=== PATIENT | female | born 1995 | race Two or more races ===

== ENCOUNTER 2021-05-13 01:14 | Emergency (ER) | payer OTHER ==
[2021-05-13 01:44] LABS: BILIRUBIN,URINE NEGATIVE (NEGATIVE); GLUCOSE, URINE (UA) NEGATIVE (NEGATIVE); KETONES,URINE (UA) 15 mg/dL (NEGATIVE); LEUKOCYTE ESTERASE, URINE NEGATIVE (NEGATIVE); NITRITE,URINE NEGATIVE (NEGATIVE); OCCULT BLOOD,URINE TRACE-LYSE (NEGATIVE); PH,URINE 7.5 PH (5.0-7.5); PROTEIN,URINE NEGATIVE (NEGATIVE); UROBILINOGEN,URINE 0.2 (NORMAL) E.U./dL (NORMAL)
[2021-05-13 01:46] LABS: CLARITY,URINE CLEAR (CLEAR)
[2021-05-13 03:59] LABS: BASOPHILS % (AUTO) 0.2 %; EOSINOPHILS # (AUTO) 0.1 10^3/uL (0.0-0.7); EOSINOPHILS % (AUTO) 0.7 %; HCT - HEMATOCRIT 42.3 % (37.0-47.0); HGB - HEMOGLOBIN 14.6 g/dL (12.0-16.0); LYMPHOCYTES # (AUTO) 1.8 10^3/uL (1.5-3.5); LYMPHOCYTES % (AUTO) 17.7 %; MEAN CORPUSCULAR HEMOGLOBIN 29.3 pg (27.0-31.0); MEAN CORPUSCULAR HGB CONC 34.5 g/dL (32.0-36.0); MEAN CORPUSCULAR VOLUME 84.9 fL (81.0-99.0); MONOCYTES # (AUTO) 0.5 10^3/uL (0.0-1.0); MONOCYTES % (AUTO) 4.8 %; NEUTROPHILS # (AUTO) 7.9 10^3/uL (1.5-6.6); NEUTROPHILS % (AUTO) 76.4 %; PLT - PLATELET COUNT 288 10^3/uL (130-450); RED BLOOD COUNT 4.98 10^6/uL (4.20-5.40); RED CELL DISTRIBUTION WIDTH 12.5 % (12.0-15.0); WHITE BLOOD COUNT 10.3 x10^3/uL (4.8-10.8)
[2021-05-13 04:13] LABS: ALBUMIN 4.3 g/dL (3.2-5.5); ALBUMIN/GLOBULIN RATIO 1.3 (1.0-2.2); BILIRUBIN,TOTAL 0.5 mg/dL (0.2-1.0); CALCIUM 9.6 mg/dL (8.5-10.3); CREATININE 0.7 mg/dL (0.4-1.0); POTASSIUM 2.6 mmol/L (3.5-5.0); TOTAL PROTEIN 7.7 g/dL (6.7-8.2)
[2021-05-13] MEDS ORDERED: HYDROcod/ACETAM 5/325 MG TABLET PO STA (06:37)
[2021-05-13] MEDS ORDERED: ONDANSETRON ODT 4 MG TABLET TL STA (06:37)
[2021-05-13] MEDS ORDERED: POTASSIUM CHLORIDE 20 MEQ TABLET PO STA (06:38)
[2021-05-13 06:39] VITALS: BP 126/91
--- NOTE | 2021-05-13 06:47 | ED Physician Documentation ---
PD HPI ABD PAIN - Stated complaint Stated Complaint: ABD PX - Chief complaint Chief Complaint: Abd Pain - History obtained from History obtained from: Patient - History of Present Illness Timing - onset: Enter time (19:00), Today Timing - details: Abrupt onset, Intermittant, Waxing and waning Pain level max: 4 Pain level now: 0 Quality: Pain Location: RUQ, Epigastric Improved by: Other (no ameliorating factors) Worsened by: Palpation Associated symptoms: Nausea. No: Fever, Vomiting Similar symptoms before: Has not had sx before - Additional information Additional information: Liberian-speaking only; HPI/ROS obtained via [employer] for translation. Patient c/o epigastric pain since 7 PM, episodic, with nausea but no vomiting. Denies h/o similar symptoms. She also notes that she took a home test yesterday with (+) result. LMP 03/22 Review of Systems Constitutional: denies: Fever Cardiac: reports: Reviewed and negative Respiratory: reports: Reviewed and negative GI: reports: Abdominal Pain, Nausea. 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 : None HEENT: None Psych: None Musculoskeletal: None Derm: None - Past Surgical History Past Surgical History: Yes /HAIRSPRING TRUER: section - Present Medications Home Medications: Ambulatory Orders Medication Instructions Recorded Confirmed HYDROcod/ACETAM 5/325 [[place] 5/325] 1 tablet PO Q6H PRN #10 tablet 05/13/21 Ondansetron Odt [Zofran] 4 mg TL Q6H PRN #10 tablet 05/13/21 - Allergies Allergies/Adverse Reactions: Allergies Allergy/AdvReac Type Severity Reaction Status Date / Time No Known Drug Allergies Allergy Verified 05/13/21 01:37 - Social History Does the pt smoke?: No Smoking Status: Never smoker Does the pt drink ETOH?: No Does the pt have substance abuse?: No - Immunizations Immunizations are current?: Yes - POLST Patient has POLST: No PD ED PE NORMAL - Vitals Vital signs reviewed: Yes - General General: Alert and oriented X 3, No acute distress, Well developed/nourished - Cardiac Cardiac: RRR, No murmur - Respiratory Respiratory: No respiratory distress, Clear bilaterally - Abdomen Abdomen: Normal bowel sounds, Soft, Non tender, Non distended - Back Back: No CVA TTP - Derm Derm: Normal color, Warm and dry - Extremities Extremities: No edema Results - Vitals Vitals: Oxygen O2 Source Room air - Labs Labs: Laboratory Tests 05/13/21 05/13/21 05/13/21 01:30 03:40 03:40 WBC 10.3 RBC 4.98 Hgb 14.6 Hct 42.3 MCV 84.9 MCH 29.3 MCHC 34.5 RDW 12.5 Plt Count 288 MPV 10.0 Neut # (Auto) 7.9 H Lymph # (Auto) 1.8 [place] # (Auto) 0.5 Eos # (Auto) 0.1 Baso # (Auto) 0.0 Absolute Nucleated RBC 0.00 Nucleated RBC % 0.0 Sodium 136 Potassium 2.6 L Chloride 100 L Carbon Dioxide 24 Anion Gap 12.0 BUN 11 Creatinine 0.7 Estimated GFR (MDRD) 100 Glucose 112 H Calcium 9.6 Total Bilirubin 0.5 AST 18 ALT 17 Alkaline Phosphatase 67 Total Protein 7.7 Albumin 4.3 Globulin 3.4 Albumin/Globulin Ratio 1.3 Lipase 36 HCG, Quant Urine Color YELLOW Urine Clarity CLEAR Urine pH 7.5 Ur Specific [place] 1.020 Urine Protein NEGATIVE Urine Glucose (UA) NEGATIVE Urine Ketones 15 H Urine Occult Blood TRACE-LYSE Urine Nitrite NEGATIVE Urine Bilirubin NEGATIVE Urine Urobilinogen 0.2 (NORMAL) Ur Leukocyte Esterase NEGATIVE Ur Microscopic Review NOT INDICATED Urine Culture Comments NOT INDICATED 05/13/21 03:40 WBC RBC Hgb Hct MCV MCH MCHC RDW Plt Count MPV Neut # (Auto) Lymph # (Auto) [place] # (Auto) Eos # (Auto) Baso # (Auto) Absolute Nucleated RBC Nucleated RBC % Sodium Potassium Chloride Carbon Dioxide Anion Gap BUN Creatinine Estimated GFR (MDRD) Glucose Calcium Total Bilirubin AST ALT Alkaline Phosphatase Total Protein Albumin Globulin Albumin/Globulin Ratio Lipase HCG, Quant 8761.00 Urine Color Urine Clarity Urine pH Ur Specific [place] Urine Protein Urine Glucose (UA) Urine Ketones Urine Occult Blood Urine Nitrite Urine Bilirubin Urine Urobilinogen Ur Leukocyte Esterase Ur Microscopic Review Urine Culture Comments - Rads (name of study) RUQ US Radiology: Prelim report reviewed, See rad report first trimester US Radiology: Prelim report reviewed, See rad report PD MEDICAL DECISION MAKING - ED course Complexity details: reviewed results, re-evaluated patient, considered differential, d/w patient ED course: first trimester US shows early , but too early to see heart movement so differential includes blighted ovum; will need close follow up for reevaluation within next few days. RUQ US shows gallstones without overt evidence of cholecystitis. She is having pain on reevaluation and thus given vicodin with rx for short course of vicodin transmitted to her pharmacy of choice. Potassium low at 2.6. Given po potassium, but advised to follow up within few days with primary care provider for recheck. All of these results reviewed with patient (again, using [employer]yr[employer] for translation), as well as diagnoses, prognoses, and follow up recommendations (surgery for the gallbladder issues, learning developer for reevaluation of findings on tonights US, and general practitioner for recheck of potassium). I am prescribing a short course of short-acting opioid pain medication for this patient. 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 I have discussed that the opioids are for short term therapy only, and will not be refilled from the ED Departure - Departure Disposition: 01 Home, Self Care Clinical Impression: Biliary colic, Early stage of , Hypokalemia Condition: Good Instructions: ED Gallstone W Biliary Colic, ED Potassium Deficiency, ED Abdominal Pain Preg Gallstones Follow-Up: Sravanthi Tracy MD [Provider Admit Priv/Credential] - Debbie Jason MD [Provider Admit Priv/Credential] - Prescriptions: HYDROcod/ACETAM 5/325 [[place] 5/325] 1 tablet PO Q6H PRN #10 tablet PRN Reason: Pain Ondansetron Odt [Zofran] 4 mg TL Q6H PRN #10 tablet PRN Reason: Nausea / Vomiting Print Language: Liberian Comments: The ultrasound shows signs of early . It is important to follow up with learning developer within the next week for reevaluation so that it can be determined if the is progressing normally. The ultrasound also shows you have gallstones, and this is what is causing the upper abdominal pain. A pain medication has been prescribed for this; the medication is hydrocodone with acetaminophen. This is a narcotic pain medication, so it is to be used sparingly in . If your symptoms are not controlled with this medication, consider returning to the emergency department. A prescription for the hydrocodone /acetaminophen as well as an anti-nausea medication (ondansetron) has been sent to [facility] pharmacy in [place]. You should follow up with a general surgeon to discuss options for treatment of the gallstones. You should also follow up with your primary care provider for recheck of your potassium level. I am prescribing a short course of narcotic pain medication for you. These are potentially dangerous and addictive medications that should be used carefully. These medications may constipate you. Take an pabv-nvo-frcuwvt stool softener (docusate) twice daily with plenty of water while taking these medications. If you go 24 hours without a bowel movement, take fvwu-yxx-mksvpuv miralax, per package instructions. Do not drink or drive while taking these medications. If you received narcotic or sedating medications while in the emergency department, do not drive for 24 hours. Store this medication in a safe, secure place and out of reach of children. It is a violation of federal law to give or sell this medication to another person or to use in a manner other than prescribed. The ED will not refill narcotic prescriptions, including prescriptions lost or stolen. To dispose of unwanted medications: 1. [facility] at [address] in [place] has a medication drop box. They accept prescription medications (in pill form) Tuesday through Tuesday 9:00 a.m. to 5:00 p.m. 2. The [facility] accepts prescription medications (in pill form only) for disposal year round. Call for more information. 3. Contact the [facility] for the next [facility] sponsored prescription drug collection event. , [phone], or [phone]; Discharge Date/Time: 05/13/21 06:50
--- NOTE | 2021-05-13 10:09 | Ultrasound Report ---
PROCEDURE: OB First Trimester INDICATIONS: abdominal pain, first trimester OUTSIDE/PRIOR DATING DATA: Last menstrual period (LMP): 03/22/2021. LMP-based estimated date of delivery (TATYANA): 12/27/2021. First dating scan (date and location): 05/13/2021. Estimated date of delivery (TATYANA) from first dating scan: Not applicable. TECHNIQUE: Real-time scanning was performed of the fetus and maternal pelvic organs, with image documentation. COMPARISON: None FINDINGS: Embryo: Intrauterine gestational sac is identified measuring 6 mm corresponding to a gestational age of 5 weeks 2 days. No yolk sac or pole is identified. Heart rate: Not present Measurement variability in dating: +/- 4 weeks by LMP, +/- 7 days by mean sac diameter (use before 6 weeks gestation if crown-rump length not able to be measured), +/- 5 days by crown-rump length (6-12 weeks gestation). Maternal organs: Ovaries demonstrate cysts within the right ovary the largest measuring 2 cm.. IMPRESSION: Intrauterine gestational sac without visualized pole or yolk sac. Recommend short interval imag ing follow-up with correlation to beta hCG levels to determine possible progression versus blighted ovum. Reviewed by: Nara Jaffe MD on 05/13/2021 10:07 AM PST Approved by: Nara Jaffe MD on 05/13/2021 10:07 AM PST Station ID: [id number]
--- NOTE | 2021-05-13 10:11 | Ultrasound Report ---
PROCEDURE: Abdomen Limited INDICATIONS: RUQ pain TECHNIQUE: Real-time scanning was performed of the abdominal and retroperitoneal organs, with image documentatio n. COMPARISON: OB ultrasound 05/13/2021 FINDINGS: Liver: Liver is normal in size with steatosis. Gallbladder: Areas of sludge versus small stones are identified within the gallbladder. Wall thicknes s is at the upper limits of normal measuring 2.8 mm. Biliary ducts: Intrahepatic bile ducts are non-dilated. Extrahepatic bile duct caliber measures 4.6 mm. Normal is 6-7 mm or less in diameter, or 10 mm or less post-cholecystectomy. Pancreas: Visualized portions of the pancreas are sonographically normal. Kidneys: Right kidney measures 10.4 cm long. No hydronephrosis or nephrolithiasis. No solid masses . IVC: Intrahepatic inferior vena cava is patent. Miscellaneous: No free abdominal fluid. IMPRESSION: Cholelithiasis without imaging evidence of cholecystitis. The above findings are concordant with preliminary report. Reviewed by: Nara Jaffe MD on 05/13/2021 10:10 AM [facility] Approved by: Nara Jaffe MD on 05/13/2021 10:10 AM [facility] Station ID: [id number]
== END 2021-05-13 06:50 | disposition home or self-care (01) ==
LOC: ED 01:14
DX: O26.619 Liver and biliary tract disorders in pregnancy, unspecified trimester (principal); Z3A.01 Less than 8 weeks gestation of pregnancy; O99.283 Endocrine, nutritional and metabolic diseases complicating pregnancy, third trimester; E87.6 Hypokalemia
CPT/HCPCS: 36415; 76705; 76801; 76817; 80053; 81003; 83690; 84702; 85025; 99283; 99284; A9270; Q0162; 81001; 87086

== ENCOUNTER 2021-05-17 19:33 | Emergency (ER) | payer OTHER ==
--- NOTE | 2021-05-17 19:39 | ED Physician Documentation ---
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 History of 2 C-sections, she is not sure why she had the first 1, "a emergency in [place]." She has been having nightly right upper quadrant pain that is severe and worse with inspiration. Se en here on May 13, obstetric ultrasound showed gestational sac without pole or yolk sac. Abdominal ultrasound demonstrated cholelithiasis. No evidence of cholecystitis. Blood work demonstrated normal white blood cell count and liver enzymes. Beta hCG was 8761. Potassium was 2.6 and given oral potassium. She was given hydrocodone which has not helped the pain that much. She denies fevers but has had sweats at night. Pain not too bad right now but seems worse in the evening. Of note she declined pain medication at the time of service as she is driving. She denies vaginal bleeding or fluid loss, no pelvic pain. 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 - Present Medications Home Medications: Ambulatory Orders Medication Instructions Recorded Confirmed HYDROcod/ACETAM 5/325 [[place] 5/325] 1 tablet PO Q6H PRN #10 tablet 05/13/21 05/17/21 Ondansetron Odt [Zofran] 4 mg TL Q6H PRN #10 tablet 05/13/21 05/17/21 Oxycodone HCl/Acetaminophen 1 - 2 each PO Q6H PRN #30 tablet 05/17/21 [Percocet 5-325 mg Tablet] - Allergies Allergies/Adverse Reactions: Allergies Allergy/AdvReac Type Severity Reaction Status Date / Time No Known Drug Allergies Allergy Verified 05/17/21 19:46 - Social History Does the pt smoke?: No Smoking Status: Never smoker Does the pt drink ETOH?: No Does the pt have substance abuse?: No - Immunizations Immunizations are current?: Yes - POLST Patient has POLST: No PD ED PE NORMAL - Vitals Vital signs reviewed: Yes - General General: Alert and oriented X 3, No acute distress - HEENT HEENT: PERRL, EOMI - Neck Neck: Supple, no meningeal sign, No bony TTP - Cardiac Cardiac: RRR, No murmur - Respiratory Respiratory: No respiratory distress, Clear bilaterally - Abdomen Abdomen: Normal bowel sounds, Soft, Other (Mild tenderness in the right upper quadrant, positive Noble sign.) - Back Back: No CVA TTP, No spinal TTP - Derm Derm: Normal color, Warm and dry - Extremities Extremities: No edema, No calf tenderness / cord - Neuro Neuro: Alert and oriented X 3, Normal speech Results - Vitals Vitals: Vital Signs - 24 hr 05/17/21 05/17/21 19:35 22:32 Temperature 36 C L 36.5 C Heart Rate 82 68 Respiratory 18 20 Rate Blood Pressure 148/86 H 136/96 H O2 Saturation 98 97 Oxygen O2 Source Room air - Labs Labs: Laboratory Tests 05/17/21 05/17/21 05/17/21 19:55 19:55 19:55 WBC 9.5 RBC 4.96 Hgb 14.8 Hct 42.0 MCV 84.7 MCH 29.8 MCHC 35.2 RDW 12.2 Plt Count 264 MPV 10.1 Neut # (Auto) 6.4 Lymph # (Auto) 2.3 [place] # (Auto) 0.6 Eos # (Auto) 0.1 Baso # (Auto) 0.0 Absolute Nucleated RBC 0.00 Nucleated RBC % 0.0 Sodium 136 Potassium 2.7 L Chloride 99 L Carbon Dioxide 24 Anion Gap 13.0 BUN 11 Creatinine 0.8 Estimated GFR (MDRD) 85 L Glucose 103 H Calcium 9.3 Total Bilirubin 0.9 AST 26 ALT 27 Alkaline Phosphatase 69 Total Protein 8.0 Albumin 4.6 Globulin 3.4 Albumin/Globulin Ratio 1.4 Lipase 35 HCG, Quant Blood Type B NEGATIVE 05/17/21 19:55 WBC RBC Hgb Hct MCV MCH MCHC RDW Plt Count MPV Neut # (Auto) Lymph # (Auto) [place] # (Auto) Eos # (Auto) Baso # (Auto) Absolute Nucleated RBC Nucleated RBC % Sodium Potassium Chloride Carbon Dioxide Anion Gap BUN Creatinine Estimated GFR (MDRD) Glucose Calcium Total Bilirubin AST ALT Alkaline Phosphatase Total Protein Albumin Globulin Albumin/Globulin Ratio Lipase HCG, Quant 75751.00 Blood Type PD MEDICAL DECISION MAKING - ED course Complexity details: reviewed results (Beta-hCG seems to have risen in a manner consistent with potentially a normal more than doubling in 4 days. Went from 8761 about 2-1/2 days ago to 61438 today.) ED course: This is a G3, P2 in early who has biliary colic and pain now worse than it was the other night but still no evidence of cholecystitis by labs or ultrasound. does seem to be progressing per the mental health clinician with more evidence of an intrauterine when the other night it was not too reassuring on ultrasound. Departure - Departure Disposition: 01 Home, Self Care Clinical Impression: Biliary colic, Early stage of Condition: Good Record reviewed to determine appropriate education?: Yes Instructions: ED Gallstone W Biliary Colic Prescriptions: Oxycodone HCl/Acetaminophen [Percocet 5-325 mg Tablet] 1 - 2 each PO Q6H PRN #30 tablet PRN Reason: pain Print Language: Latvian Comments: Nancie se mencion, parece que neely embarazo est progresando guzman, mirando el ultrasonido esta noche, neely fecha de parto debera ser el 3 de noviembre. Neely vescula biliar no se ve peor de lo que estaba. Muchas piedras, sandi ninguna evidencia de infeccin o bloqueo. Estoy recetando un analgsico ms jak y env i la receta a [facility] en [place]. Debe hacer un seguimiento con el especialista mientras planifica. Regresar si es peor. Puede ser beneficioso seguir marvin dieta baja en grasas, especialmente por la noche. La grasa hace que la vescula biliar se contraiga, lo que causar ms dolor. Nancie se discuti, trate de minimizar el uso de narcticos vignesh el embarazo, cuando el dolor no es zheng jak, debe tratar de seguir con Tylenol de venta aryan para el dolor. Le estoy recetando un ciclo corto de analgsicos narcticos. Estos son medicamentos potencialmente peligrosos y adictivos que deben usarse con cuidado. Estos medicamentos pueden causarle estreimiento. [place] un ablandador de heces de venta aryan (docusato) dos veces al da con abundante agua mientras earnestine estos medicamentos. Si pasa 24 horas sin defecar, tome miralax de venta aryan, segn las instrucciones del paquete. No vikash ni conduzca mientras earnestine estos medicamentos. Si recibi medicamentos narcticos o sedantes mientras estaba en el departamento de emergencias, no conduzca vignesh 24 horas. Guarde radha medicamento en un lugar seguro y fuera del alcance de los nios. Es marvin violacin de la [facility] le[facility] o telecom network manager radha medicamento a otra persona o usarlo de marvin manera diferente a la recetada. El ED no volver a surtir recetas de narcticos, incluidas las recetas perdidas o robadas. Para desechar medicamentos no deseados: 1. Precinto [place] del Departamento del [facility] del [facility] en [facility]. en [place] tiene un buzn de medicamentos. Aceptan medicamentos recetados (en forma de pastillas) de lunes a viernes de 9:00 a. m. a 5:00 p. m. 2. El Departamento de [place] de la [facility] acepta medicamentos recetados (solo en forma de pldora) para neely eliminacin vignesh todo el ao. Caleb hunter para ms informacin. 3. Comunquese con el alguacil del [facility] para conocer el prximo evento de recoleccin de medicamentos recetados patrocinado por la [place]. , [id number], o [phone]; Tenga en cuenta que muchos analgsicos narcticos tambin contienen Tylenol/acetaminofn. Asegrese de que neely dosis total de paracetamol de todas las asl no exceda los 3 g (3000 mg) por da. Discharge Date/Time: 05/17/21 22:32
[2021-05-17 20:08] LABS: BASOPHILS % (AUTO) 0.2 %; EOSINOPHILS # (AUTO) 0.1 10^3/uL (0.0-0.7); HGB - HEMOGLOBIN 14.8 g/dL (12.0-16.0); LYMPHOCYTES # (AUTO) 2.3 10^3/uL (1.5-3.5); LYMPHOCYTES % (AUTO) 24.3 %; MEAN CORPUSCULAR HEMOGLOBIN 29.8 pg (27.0-31.0); MEAN CORPUSCULAR HGB CONC 35.2 g/dL (32.0-36.0); MEAN CORPUSCULAR VOLUME 84.7 fL (81.0-99.0); MEAN PLATELET VOLUME 10.1 fL (7.9-10.8); MONOCYTES # (AUTO) 0.6 10^3/uL (0.0-1.0); MONOCYTES % (AUTO) 6.4 %; NEUTROPHILS # (AUTO) 6.4 10^3/uL (1.5-6.6); NEUTROPHILS % (AUTO) 67.8 %; PLT - PLATELET COUNT 264 10^3/uL (130-450); RED BLOOD COUNT 4.96 10^6/uL (4.20-5.40); RED CELL DISTRIBUTION WIDTH 12.2 % (12.0-15.0); WHITE BLOOD COUNT 9.5 x10^3/uL (4.8-10.8)
[2021-05-17 20:22] LABS: ALBUMIN 4.6 g/dL (3.2-5.5); ALBUMIN/GLOBULIN RATIO 1.4 (1.0-2.2); BILIRUBIN,TOTAL 0.9 mg/dL (0.2-1.0); CALCIUM 9.3 mg/dL (8.5-10.3); CREATININE 0.8 mg/dL (0.4-1.0); POTASSIUM 2.7 mmol/L (3.5-5.0)
[2021-05-17] MEDS ORDERED: POTASSIUM CHLORIDE 20 MEQ TABLET PO STA (20:40)
[2021-05-17] MEDS ORDERED: oxyCODONE/ACET 5/325 Prepack 4 PO STA (22:01)
[2021-05-17 22:35] VITALS: BP 136/96
--- NOTE | 2021-05-17 22:53 | Ultrasound Report ---
PROCEDURE: Abdomen Limited INDICATIONS: Reeval RUQ pain TECHNIQUE: Real-time focused scanning was performed of the abdomen, with image documentation. COMPARISON: Abdominal ultrasound 05/13/2021 FINDINGS: The liver is normal in size at 16.1 cm and diffusely increased in echogenicity. Gallstones and sludge are seen within the gallbladder. No gallbladder wall thickening or pericholecys tic fluid. Sonographic Noble sign is negative. Intrahepatic and intrahepatic biliary ducts are within normal limits in size. The common bile duct me asures 2.5 mm in maximum diameter. Visualized pancreas is within normal limits. Right kidney is within normal limits in size. No hydronephrosis or nephrolithiasis. No free right upper quadrant fluid. IMPRESSION: 1.Cholelithiasis and gallbladder sludge without signs of acute cholecystitis. 2.Diffusely increased hepatic echogenicity is nonspecific, but most commonly encountered in the setti ng of hepatic steatosis. However, other causes of hepatocellular disease are not excluded. Recommend clinical correlation. Reviewed by: Merlin Juarez MD on 05/17/2021 10:51 PM [facility] Approved by: Merlin Juarez MD on 05/17/2021 10:51 PM PST Station ID: [id number]
--- NOTE | 2021-05-17 23:31 | Ultrasound Report ---
PROCEDURE: OB First Trimester INDICATIONS: Recent nondiagnostic ultrasound OUTSIDE/PRIOR DATING DATA: Last menstrual period (LMP): 03/22/2021. LMP-based estimated date of delivery (TATYANA): 12/27/2021. First dating scan (date and location): 05/17/2021. Estimated date of delivery (TATYANA) from first dating scan: 01/11/2022. TECHNIQUE: Real-time scanning was performed of the fetus and maternal pelvic organs, with image documentation. COMPARISON: Ultrasound 05/13/2021 FINDINGS: Embryo: Intrauterine is seen with gestational sac, yolk sac, and pole. [place]-rump le ngth measures 0.24 cm, giving an estimated gestational age of 5 weeks 6 days. cardiac activity is seen. A small perigestational sac hemorrhage is seen measuring 0.9 x 0.6 x 0.3 cm. Heart rate: 60 bpm Measurement variability in dating: +/- 4 weeks by LMP, +/- 7 days by mean sac diameter (use before 6 weeks gestation if crown-rump length not able to be measured), +/- 5 days by crown-rump length (6-12 weeks gestation). Maternal organs: Ovaries are within normal limits. A right corpus luteum cyst measures up to 2.6 cm. Small amount of free fluid is seen in the pelvic cul-de-sac. IMPRESSION: 1.Single live intrauterine with estimated gestational age of 5 weeks 6 days, giving an ultr asound TATYANA of 01/11/2022. 2.Small perigestational sac hemorrhage is seen measuring up to 0.9 cm. Reviewed by: Merlin Juarez MD on 05/17/2021 11:29 PM PST Approved by: Merlin Juarez MD on 05/17/2021 11:29 PM PST Station ID: [id number]
--- NOTE | 2021-05-17 23:31 | Ultrasound Report ---
PROCEDURE: OB Transvaginal INDICATIONS: Recent nondiagnostic ultrasound OUTSIDE/PRIOR DATING DATA: Last menstrual period (LMP): 03/22/2021. LMP-based estimated date of delivery (TATYANA): 12/27/2021. First dating scan (date and location): 05/17/2021. Estimated date of delivery (TATYANA) from first dating scan: 01/11/2022. TECHNIQUE: Real-time scanning was performed of the fetus and maternal pelvic organs, with image documentation. COMPARISON: Ultrasound 05/13/2021 FINDINGS: Embryo: Intrauterine is seen with gestational sac, yolk sac, and pole. [place]-rump le ngth measures 0.24 cm, giving an estimated gestational age of 5 weeks 6 days. cardiac activity is seen. A small perigestational sac hemorrhage is seen measuring 0.9 x 0.6 x 0.3 cm. Heart rate: 60 bpm Measurement variability in dating: +/- 4 weeks by LMP, +/- 7 days by mean sac diameter (use before 6 weeks gestation if crown-rump length not able to be measured), +/- 5 days by crown-rump length (6-12 weeks gestation). Maternal organs: Ovaries are within normal limits. A right corpus luteum cyst measures up to 2.6 cm. Small amount of free fluid is seen in the pelvic cul-de-sac. IMPRESSION: 1.Single live intrauterine with estimated gestational age of 5 weeks 6 days, giving an ultr asound TATYANA of 01/11/2022. 2.Small perigestational sac hemorrhage is seen measuring up to 0.9 cm. Reviewed by: Merlin Juarez MD on 05/17/2021 11:30 PM PST Approved by: Merlin Juarez MD on 05/17/2021 11:30 PM PST Station ID: [id number]
== END 2021-05-17 22:32 | disposition home or self-care (01) ==
LOC: ED 19:33
DX: O99.891 Other specified diseases and conditions complicating pregnancy (principal); K80.50 Calculus of bile duct without cholangitis or cholecystitis without obstruction; Z3A.01 Less than 8 weeks gestation of pregnancy
CPT/HCPCS: 36415; 76705; 76801; 76817; 80053; 83690; 84702; 85025; 86900; 86901; 99282; 99284; A9270

== ENCOUNTER 2021-05-21 08:35 | Inpatient (IN) | payer OTHER ==
[2021-05-21] MEDS ORDERED: HYDROmorphone 1 MG/ML CARPUJECT IVP STA ×3 (08:45→14:21)
[2021-05-21] MEDS ORDERED: KETOROLAC 30 MG/ML VIAL IVP STA (08:45)
[2021-05-21] MEDS ORDERED: SODIUM CHLORIDE 0.9% 1,000 ML IV STA ×2 (08:45→11:17)
--- NOTE | 2021-05-21 09:07 | ED Physician Documentation ---
History of Present Illness - Stated complaint Stated Complaint: ABD PX - History obtained from History obtained from: Patient - Additonal information Additional information: The patient comes to the emergency department chief complaint upper quadrant abdominal pain and nausea for the last week. She states that when the pain and nausea started, she was seen and had an ultrasound done, which showed gallstones. The patient states that she has pretty much been in pain since her original ultrasound which was done on May 13. She states that she can hold food and water down only occasionally but usually everything comes up. The patient's last menstrual period was March 22 and she had an OB ultrasound on May 13, which showed her to be about 4 weeks along. She states she was told at that time that she could not have her gallbladder removed while she was . She states that she has been so miserable she is considering getting an because she just wants her gallbladder out. She reports a fever of 99.9 at home. She states her pain is a 10 out of 10 after explanation of the pain scale. She states that taking deep breath causes it to hurt more and she feels like she cannot get a full breath and because of the pain. She also reports pain in her back around the same level as the pain in the abdomen. No radiation. She does not have any further descriptors for the pain other than it just hurts. The patient has been using [place] and Zofran at home with no relief.No vaginal bleeding or other issues with the . No other complaints at this time. Review of Systems Ten Systems: 10 systems reviewed and negative Constitutional: reports: Reviewed and negative Eyes: reports: Reviewed and negative Ears: reports: Reviewed and negative Nose: reports: Reviewed and negative Throat: reports: Reviewed and negative Cardiac: reports: Reviewed and negative Respiratory: reports: Reviewed and negative GI: reports: Abdominal Pain, Nausea, Vomiting : reports: Reviewed and negative Skin: reports: Reviewed and negative Musculoskeletal: reports: Reviewed and negative Neurologic: reports: Reviewed and negative Psychiatric: reports: Reviewed and negative Endocrine: reports: Reviewed and negative Immunocompromised: reports: Reviewed and negative PD PAST MEDICAL HISTORY - Past Medical History Cardiovascular: None Respiratory: None Neuro: None Endocrine/Autoimmune: None GI: None HOSPICE TEAM LEAD: None : None HEENT: None Psych: None Musculoskeletal: None Derm: None - Past Surgical History Past Surgical History: Yes /HOSPICE TEAM LEAD: section - Present Medications Home Medications: Ambulatory Orders Medication Instructions Recorded Confirmed Ondansetron Odt [Zofran] 4 mg TL Q6H PRN #10 tablet 05/13/21 05/21/21 Oxycodone HCl/Acetaminophen 1 - 2 each PO Q6H PRN #30 tablet 05/17/21 05/21/21 [Percocet 5-325 mg Tablet] - Allergies Allergies/Adverse Reactions: Allergies Allergy/AdvReac Type Severity Reaction Status Date / Time No Known Drug Allergies Allergy Verified 05/21/21 08:45 - Social History Does the pt smoke?: No Smoking Status: Never smoker Does the pt drink ETOH?: No Does the pt have substance abuse?: No - Immunizations Immunizations are current?: Yes - POLST Patient has POLST: No PD ED PE NORMAL - Vitals Vital signs reviewed: Yes - General General: Alert and oriented X 3, No acute distress, Well developed/nourished - HEENT HEENT: Atraumatic, PERRL, EOMI, Moist mucous membranes - Neck Neck: Supple, no meningeal sign - Cardiac Cardiac: RRR, No murmur, Strong equal pulses - Respiratory Respiratory: No respiratory distress, Clear bilaterally - Abdomen Abdomen: Soft, Non distended, Other (Moderate tenderness without rebound or guarding right upper quadrant.) - Back Back: No CVA TTP - Derm Derm: Normal color, Warm and dry, No rash - Extremities Extremities: No deformity, No edema - Neuro Neuro: Alert and oriented X 3 - Psych Psych: Normal mood, Normal affect Results - Vitals Vitals: Vital Signs - 24 hr 05/21/21 05/21/21 05/21/21 08:40 10:10 13:08 Temperature 36.8 C Heart Rate 80 72 66 Respiratory 19 18 17 Rate Blood Pressure 157/102 H 142/92 H 147/95 H O2 Saturation 100 99 99 05/21/21 14:13 Temperature Heart Rate 71 Respiratory 18 Rate Blood Pressure 145/89 H O2 Saturation 100 Oxygen O2 Source Room air - Labs Labs: Laboratory Tests 05/21/21 05/21/21 05/21/21 09:13 09:13 09:13 WBC 17.4 H RBC 4.71 Hgb 14.0 Hct 40.1 MCV 85.1 MCH 29.7 MCHC 34.9 RDW 12.6 Plt Count 234 MPV 10.7 Neut # (Auto) 16.1 H Lymph # (Auto) 0.7 L [place] # (Auto) 0.5 Eos # (Auto) 0.0 Baso # (Auto) 0.0 Absolute Nucleated RBC 0.00 Nucleated RBC % 0.0 Sodium 135 Potassium 2.8 L Chloride 99 L Carbon Dioxide 21 Anion Gap 15.0 H BUN 10 Creatinine 0.7 Estimated GFR (MDRD) 100 Glucose 118 H Calcium 9.1 Total Bilirubin 0.8 AST 19 ALT 23 Alkaline Phosphatase 65 Total Protein 7.8 Albumin 4.3 Globulin 3.5 Albumin/Globulin Ratio 1.2 Lipase 28 HCG, Quant 22831.00 Nasal Adenovirus (PCR) Nasal B. parapertussis DNA (PCR) Nasal Coronavir 229E PCR Nasal Coronavir HKU1 PCR Nasal Coronavir NL63 PCR Nasal Coronavir OC43 PCR Nasal Enterovir/Rhinovir PCR Nasal Influenza B PCR Nasal Influenza A PCR Nasal Parainfluen 1 PCR Nasal Parainfluen 2 PCR Nasal Parainfluen 3 PCR Nasal Parainfluen 4 PCR Nasal RSV (PCR) Nasal B.pertussis DNA PCR Nasal C.pneumoniae (PCR) Jeff Human Metapneumo PCR Nasal M.pneumoniae (PCR) Nasal SARS-CoV-2 (PCR) 05/21/21 14:34 WBC RBC Hgb Hct MCV MCH MCHC RDW Plt Count MPV Neut # (Auto) Lymph # (Auto) [place] # (Auto) Eos # (Auto) Baso # (Auto) Absolute Nucleated RBC Nucleated RBC % Sodium Potassium Chloride Carbon Dioxide Anion Gap BUN Creatinine Estimated GFR (MDRD) Glucose Calcium Total Bilirubin AST ALT Alkaline Phosphatase Total Protein Albumin Globulin Albumin/Globulin Ratio Lipase HCG, Quant Nasal Adenovirus (PCR) NOT DETECTED Nasal B. parapertussis DNA (PCR) NOT DETECTED Nasal Coronavir 229E PCR NOT DETECTED Nasal Coronavir HKU1 PCR NOT DETECTED Nasal Coronavir NL63 PCR NOT DETECTED Nasal Coronavir OC43 PCR NOT DETECTED Nasal Enterovir/Rhinovir PCR NOT DETECTED Nasal Influenza B PCR NOT DETECTED Nasal Influenza A PCR NOT DETECTED Nasal Parainfluen 1 PCR NOT DETECTED Nasal Parainfluen 2 PCR NOT DETECTED Nasal Parainfluen 3 PCR NOT DETECTED Nasal Parainfluen 4 PCR NOT DETECTED Nasal RSV (PCR) NOT DETECTED Nasal B.pertussis DNA PCR NOT DETECTED Nasal C.pneumoniae (PCR) NOT DETECTED Jeff Human Metapneumo PCR NOT DETECTED Nasal M.pneumoniae (PCR) NOT DETECTED Nasal SARS-CoV-2 (PCR) NOT DETECTED PD MEDICAL DECISION MAKING - ED course Complexity details: reviewed old records, reviewed results, re-evaluated patient, considered differential, d/w patient ED course: The patient was worked up with labs and repeat ultrasound. She was treated symptomatically with IV fluids, Zofran, and Dilaudid. The patient was found to have a leukocytosis. Her quantitative hCG was above 34,000. She was sent for repeat ultrasound of her gallbladder which [place] cholecystitis with thickened gallbladder wall and pericholecystic fluid. I spoke with Dr. Jason, who is on- call for surgery, and she recommended antibiotics and an OB consult, but stated she did not feel comfortable doing the surgery here at this time. She recommended looking for a transfer option after consultation with OB. Zosyn was ordered. I spoke with Dr. Escamilla of OB and he stated that there would be some degree of risk during the surgery but if the surgery needed to be done it would have to be done. He outlined the procedure from an OB standpoint for evaluating the wellbeing of the fetus before and after the surgery. I did have staff call around to various doctors hospital hospitals that may be able to take a patient like this and most had no beds available and would not even take her call. The only hospital that was willing to even entertain the case was [facility], who consulted with their general surgeon, who was too busy to speak to me on the phone. The transfer center RN reported that Dr. Yissel Torres, who is on-call for general surgery at , stated there would be "no anesthesia concern" for a 5-week and stated that there was no recent surgery should not be able to be done here if needed. She stated that our surgical team could call her if they had any further questions. I spoke with Dr. Jason again, who still felt there was a concern and preferred to try to cool the gallbladder off with antibiotics to see if the patient could get through the first trimester and then entertain the idea of surgery if absolutely needed. The patient has received now 3 doses of Dilaudid in the emergency department for her recurrent pain and has a leukocytosis in the setting of cholecystitis. I did discuss with Dr. Jason that I do not feel she is ready to go home yet and that I would prefer she be admitted to the hospital because to make sure she responds to antibiotics and can get pain control. Dr. Jason did agree to the patient to her service. Departure - Departure Disposition: ED Place in Observation Clinical Impression: Acute cholecystitis due to biliary calculus, First trimester Condition: Serious Discharge Date/Time: 05/21/21 16:37
[2021-05-21] MEDS ORDERED: ONDANSETRON 4 MG/2 ML VIAL IVP STA (09:11)
[2021-05-21 09:20] LABS: BASOPHILS % (AUTO) 0.2 %; EOSINOPHILS % (AUTO) 0.1 %; HCT - HEMATOCRIT 40.1 % (37.0-47.0); LYMPHOCYTES # (AUTO) 0.7 10^3/uL (1.5-3.5); MEAN CORPUSCULAR HEMOGLOBIN 29.7 pg (27.0-31.0); MEAN CORPUSCULAR HGB CONC 34.9 g/dL (32.0-36.0); MEAN CORPUSCULAR VOLUME 85.1 fL (81.0-99.0); MEAN PLATELET VOLUME 10.7 fL (7.9-10.8); MONOCYTES # (AUTO) 0.5 10^3/uL (0.0-1.0); MONOCYTES % (AUTO) 2.9 %; NEUTROPHILS # (AUTO) 16.1 10^3/uL (1.5-6.6); NEUTROPHILS % (AUTO) 92.6 %; PLT - PLATELET COUNT 234 10^3/uL (130-450); RED BLOOD COUNT 4.71 10^6/uL (4.20-5.40); RED CELL DISTRIBUTION WIDTH 12.6 % (12.0-15.0); WHITE BLOOD COUNT 17.4 x10^3/uL (4.8-10.8)
[2021-05-21 09:39] LABS: ALBUMIN 4.3 g/dL (3.2-5.5); ALBUMIN/GLOBULIN RATIO 1.2 (1.0-2.2); BILIRUBIN,TOTAL 0.8 mg/dL (0.2-1.0); CALCIUM 9.1 mg/dL (8.5-10.3); CREATININE 0.7 mg/dL (0.4-1.0); POTASSIUM 2.8 mmol/L (3.5-5.0); TOTAL PROTEIN 7.8 g/dL (6.7-8.2)
[2021-05-21] MEDS ORDERED: POTASSIUM CHLOR 10 MEQ/100 ML 10 MEQ/100 ML BAG IV ONE (10:21)
--- NOTE | 2021-05-21 11:46 | Ultrasound Report ---
PROCEDURE: Abdomen Limited INDICATIONS: worsening RUQ pain, stones, leukocytosis TECHNIQUE: Real-time focused scanning was performed of the abdomen, with image documentation. COMPARISON: None FINDINGS: The pancreas has a normal appearance. The liver is normal in size with no intrahepatic manny iary ductal dilatation or mass. Hepatic echogenicity is mildly increased. The gallbladder contains mu ltiple stones and has wall thickening measuring 6.2 mm and pericholecystic fluid consistent with acut e cholecystitis. The right kidney measures 10.1 cm in length. Cortex is 1.3 cm. No hydronephrosis. IMPRESSION: Cholelithiasis with wall thickening and pericholecystic fluid consistent with acute cholecystitis. Reviewed by: Jaspreet Burger on 05/21/2021 11:45 AM [facility] Approved by: Jaspreet Burger on 05/21/2021 11:45 AM [facility] Station ID: [id number]
[2021-05-21] MEDS ORDERED: PIPERACILLIN/TAZOBACTAM 3.375 GM in SODIUM CHLORIDE 0.9% MINIBAG 100 ML IV STA (12:06)
[2021-05-21] MEDS ORDERED: SODIUM CHLORIDE FLUSH 0.9% 10 ML SYRINGE IVP PRN (15:03)
[2021-05-21 15:41] LABS: B. PARAPERTUSSIS- RESP PCR PAN NOT DETECTED; B. PERTUSSIS- RESP PCR PANEL NOT DETECTED; C. PNEUMONIAE- RESP PCR PANEL NOT DETECTED; CORONAVIRUS 229E-RESP PCR NOT DETECTED; CORONAVIRUS HKU1-RESP PCR NOT DETECTED; CORONAVIRUS NL63-RESP PCR NOT DETECTED; CORONAVIRUS OC43-RESP PCR NOT DETECTED; HUMAN METAPNEUMOVIRUS NOT DETECTED; INFLUENZA A- RESP PCR PANEL NOT DETECTED; INFLUENZA B - RESP PCR PANEL NOT DETECTED; M. PNEUMONIAE- RESP PCR PANEL NOT DETECTED; PARAINFLUENZA VIRUS 1 NOT DETECTED; PARAINFLUENZA VIRUS 2 NOT DETECTED; PARAINFLUENZA VIRUS 3 NOT DETECTED; PARAINFLUENZA VIRUS 4 NOT DETECTED; RHINOVIRUS/ENTEROVIRUS NOT DETECTED; RSV- RESP PCR PANEL NOT DETECTED; SARS-CoV-2 -RESP PCR PANEL NOT DETECTED
[2021-05-21] MEDS: ACETAMINOPHEN 1,000 MG/100 ML 100 ML IV SCH ×2 (16:48→21:20)
[2021-05-21] MEDS: SODIUM CHLORIDE FLUSH 0.9% 10 ML SYRINGE IVP SCH (16:49)
[2021-05-21] MEDS: SODIUM CHLORIDE 0.9% 1,000 ML IV SCH (16:49)
[2021-05-21] MEDS: HYDROmorphone 0.5 MG/0.5 ML SYRINGE IVP PRN ×3 (16:49→23:53)
[2021-05-21] MEDS: ONDANSETRON 4 MG/2 ML VIAL IVP PRN ×2 (18:07→23:59)
[2021-05-21] MEDS: PIPERACILLIN/TAZOBACTAM 3.375 GM in SODIUM CHLORIDE 0.9% MINIBAG 100 ML IV SCH ×2 (18:07→23:53)
[2021-05-22] MEDS: HYDROmorphone 0.5 MG/0.5 ML SYRINGE IVP PRN ×8 (00:34→20:36)
[2021-05-22] MEDS: SODIUM CHLORIDE FLUSH 0.9% 10 ML SYRINGE IVP SCH ×3 (01:05→17:38)
[2021-05-22] MEDS: SODIUM CHLORIDE 0.9% 1,000 ML IV SCH ×3 (02:48→15:46)
[2021-05-22] MEDS: ACETAMINOPHEN 1,000 MG/100 ML 100 ML IV SCH ×4 (03:25→22:20)
[2021-05-22 05:08] LABS: BASOPHILS % (AUTO) 0.2 %; EOSINOPHILS % (AUTO) 0.3 %; HCT - HEMATOCRIT 36.4 % (37.0-47.0); HGB - HEMOGLOBIN 12.7 g/dL (12.0-16.0); LYMPHOCYTES # (AUTO) 1.2 10^3/uL (1.5-3.5); LYMPHOCYTES % (AUTO) 8.7 %; MEAN CORPUSCULAR HGB CONC 34.9 g/dL (32.0-36.0); MEAN CORPUSCULAR VOLUME 86.1 fL (81.0-99.0); MEAN PLATELET VOLUME 10.2 fL (7.9-10.8); MONOCYTES # (AUTO) 0.9 10^3/uL (0.0-1.0); MONOCYTES % (AUTO) 6.4 %; NEUTROPHILS # (AUTO) 11.1 10^3/uL (1.5-6.6); NEUTROPHILS % (AUTO) 84.2 %; PLT - PLATELET COUNT 232 10^3/uL (130-450); RED BLOOD COUNT 4.23 10^6/uL (4.20-5.40); RED CELL DISTRIBUTION WIDTH 12.7 % (12.0-15.0); WHITE BLOOD COUNT 13.2 x10^3/uL (4.8-10.8)
[2021-05-22 05:24] LABS: ALBUMIN 3.4 g/dL (3.2-5.5); ALBUMIN/GLOBULIN RATIO 1.2 (1.0-2.2); BILIRUBIN,TOTAL 0.7 mg/dL (0.2-1.0); CALCIUM 7.7 mg/dL (8.5-10.3); CREATININE 0.7 mg/dL (0.4-1.0); TOTAL PROTEIN 6.3 g/dL (6.7-8.2)
[2021-05-22] MEDS: PIPERACILLIN/TAZOBACTAM 3.375 GM in SODIUM CHLORIDE 0.9% MINIBAG 100 ML IV SCH ×3 (06:06→19:28)
[2021-05-22] MEDS: PANTOPRAZOLE 40 MG VIAL IVP SCH (06:06)
[2021-05-22] MEDS: ONDANSETRON 4 MG/2 ML VIAL IVP PRN ×2 (08:00→17:38)
--- NOTE | 2021-05-22 11:42 | HISTORY & PHYSICAL EXAMINATION ---
Chief Complaint - Chief Complaint Chief Complaint: Right upper quadrant pain Abdominal Pain HPI - Admitted From Admitted from: ED - History Obtained From Records Reviewed: Old records reviewed History obtained from: Patient, Other (Other providers) Exam limitations: No limitations - History of Present Illness Pain/Problem Location Description: Right upper quadrant pain Severity at the worst: Severe Pain Quality: Aching, Throbbing Context-Pain started w/: Rest Timing: Gradual onset Duration: Days: (It started at the end of April but it is worse today than it has been.) Improved with: Nothing Associated symptoms: Nausea HPI Comment/Other: Pleasant 26-year-old lady who has been seen in our emergency room 2 times in the past 10 days for right upper quadrant pain. She was seen first on May 13 at that time she reported she had been having right upper quadrant pain intermittently for at least a week. She had an ultrasound that showed cholelithiasis and also had intra uterine that was at about 4 weeks. She has a history of 2 prior pregnancies and had 2 C-sections in [place]. She reports they were emergencies but she cannot say why they were emergencies. She think she is had temperature up to 99 at home. She denies fever or chills and she complains primarily of just severe pain.She was seen and evaluated again in the emergency room by this time an ultrasound showed cholecystitis wit h gallbladder wall thickening and some pericholecystic fluid. She is also noted to have an elevated white blood cell count with a left shift. Her liver functions have all been normal. It was very difficult to control her pain in the emergency room so she was admitted overnight for pain control and IV antibiotic therapy. This morning she reports that she is feeling better although she still uncomfortable. She is requiring less pain medicine and she is tolerating liquids. PMH/PSH - Past Medical History Cardiovascular: positive: None Respiratory: positive: None Neuro: positive: None Endocrine/Autoimmune: positive: None GI: positive: None NURSING UNIT CLERK: positive: None : positive: None HEENT: positive: None Psych: positive: None Musculoskeletal: positive: None Derm: positive: None MRSA Hx?: No Other Past Medical History: Gallstones - Past Surgical History /NURSING UNIT CLERK: positive: section Social & Family Hx - Living Situation Living Arrangement: At home - Social History Does the pt smoke?: No Smoking Status: Never smoker Does the pt drink ETOH?: No Does the pt have substance abuse?: No - POLST Patient has POLST: No Meds/Allgy - Home Medications Home Medications: Ambulatory Orders Medication Instructions Recorded Confirmed Ondansetron Odt [Zofran] 4 mg TL Q6H PRN #10 tablet 05/13/21 05/21/21 Oxycodone HCl/Acetaminophen 1 - 2 each PO Q6H PRN #30 tablet 05/17/21 05/21/21 [Percocet 5-325 mg Tablet] - Allergies Allergies/Adverse Reactions: Allergies Allergy/AdvReac Type Severity Reaction Status Date / Time No Known Drug Allergies Allergy Verified 05/21/21 08:45 Review of Systems - Constitutional Constitutional: reports: Fatigue, Fever (up to 99.9) - Gastrointestinal Gastrointestinal: reports: Abdominal pain, Nausea - All Other Systems All Other Systems: reports: Reviewed and negative Exam - Vital Signs Reviewed Vital Signs: Yes Vital Signs: Vital Signs x48h Temp Pulse Resp BP Pulse Ox 05/22/21 07:52 36.5 C 71 18 129/65 96 05/22/21 05:00 36.8 C 73 18 129/86 H 96 - Physical Exam General Appearance: positive: Alert, Mild distress Eyes Bilateral: positive: Normal inspection, PERRL, EOMI ENT: positive: ENT inspection nml Neck: positive: Trachea midline Respiratory: positive: Chest non-tender, No respiratory distress, Breath sounds nml Cardiovascular: positive: Regular rate & rhythm Peripheral Pulses: positive: 2+ Abdomen: positive: Nml bowel sounds, No distention, Tenderness, Guarding. negative: Rebound Back: positive: Nml inspection Skin: positive: Color nml Neurologic/Psychiatric: positive: Oriented x3 Results - Lab Results Fish Bones: 05/22/21 04:39 05/22/21 04:39 Other Lab Results: Lab Results x24hrs 05/22/21 05/22/21 05/21/21 Range/Units 04:39 04:39 14:34 WBC 13.2 H (4.8-10.8) x10^3/uL RBC 4.23 (4.20-5.40) 10^6/uL Hgb 12.7 (12.0-16.0) g/dL Hct 36.4 L (37.0-47.0) % MCV 86.1 (81.0-99.0) fL MCH 30.0 (27.0-31.0) pg MCHC 34.9 (32.0-36.0) g/dL RDW 12.7 (12.0-15.0) % Plt Count 232 (130-450) 10^3/uL MPV 10.2 (7.9-10.8) fL Neut # (Auto) 11.1 H (1.5-6.6) 10^3/uL Lymph # (Auto) 1.2 L (1.5-3.5) 10^3/uL [place] # (Auto) 0.9 (0.0-1.0) 10^3/uL Eos # (Auto) 0.0 (0.0-0.7) 10^3/uL Baso # (Auto) 0.0 (0.0-0.1) 10^3/uL Absolute Nucleated RBC 0.00 x10^3/uL Nucleated RBC % 0.0 /100WBC Sodium 132 L (135-145) mmol/L Potassium 3.0 L (3.5-5.0) mmol/L Chloride 100 L (101-111) mmol/L Carbon Dioxide 21 (21-32) mmol/L Anion Gap 11.0 (6-13) BUN 7 (6-20) mg/dL Creatinine 0.7 (0.4-1.0) mg/dL Estimated GFR (MDRD) 100 (>89) Glucose 131 H (70-100) mg/dL Calcium 7.7 L (8.5-10.3) mg/dL Total Bilirubin 0.7 (0.2-1.0) mg/dL AST 39 (10-42) IU/L ALT 38 (10-60) IU/L Alkaline Phosphatase 65 (42-121) IU/L Total Protein 6.3 L (6.7-8.2) g/dL Albumin 3.4 (3.2-5.5) g/dL Globulin 2.9 (2.1-4.2) g/dL Albumin/Globulin Ratio 1.2 (1.0-2.2) Nasal Adenovirus (PCR) NOT DETECTED Nasal B. parapertussis DNA (PCR) NOT DETECTED Nasal Coronavir 229E PCR NOT DETECTED Nasal Coronavir HKU1 PCR NOT DETECTED Nasal Coronavir NL63 PCR NOT DETECTED Nasal Coronavir OC43 PCR NOT DETECTED Nasal Enterovir/Rhinovir PCR NOT DETECTED Nasal Influenza B PCR NOT DETECTED Nasal Influenza A PCR NOT DETECTED Nasal Parainfluen 1 PCR NOT DETECTED Nasal Parainfluen 2 PCR NOT DETECTED Nasal Parainfluen 3 PCR NOT DETECTED Nasal Parainfluen 4 PCR NOT DETECTED Nasal RSV (PCR) NOT DETECTED Nasal B.pertussis DNA PCR NOT DETECTED Nasal C.pneumoniae (PCR) NOT DETECTED Jeff Human Metapneumo PCR NOT DETECTED Nasal M.pneumoniae (PCR) NOT DETECTED Nasal SARS-CoV-2 (PCR) NOT DETECTED - Diagnostic Imaging Results Diagnostic Imaging Results Comments: Ultrasound shows cholelithiasis with wall thickening and pericholecystic fluid. Sepsis Event Note (H) - Sepsis Criteria Sepsis Criteria: WBC count greater than 10% bands, WBC count greater than 12,000 or less than 4000 Impression/Plan - Problem List Problem List: Cholelithiasis and cholecystitis in the setting of a 26-year-old lady who is generally healthy with a 5-week intrauterine . We have spoken with Dr. Escamilla here who has recommended that if we choose to proceed with surgery she would have an ultrasound before and after the procedure. This is just to prove that the is still present and appears to be viable. There is nothing that could be done to stop a spontaneous if one were to "occur. Have also spoken with [facility] department of surgery who feels that she could safely have a cholecystectomy if we are not able to control her pain. Fortunately, overnight she has improved significantly. Her pain is better her white count has dropped from greater than 17 down to about 13 and she is tole rating clear liquids. We will continue the course with IV Zosyn and try to abort this particular episode of acute cholecystitis. If we can get her to 12 weeks, out of the period of organogenesis for her child, it would be a much better time to proceed with cholecystectomy. I discussed all of the above with the patient and she is in agreement
[2021-05-22] MEDS: LORazepam 2 MG/ML VIAL IVP PRN (21:03)
[2021-05-22] MEDS: KETOROLAC 15 MG/ML VIAL IVP PRN (21:14)
[2021-05-23] MEDS: ONDANSETRON 4 MG/2 ML VIAL IVP PRN ×3 (00:07→22:08)
[2021-05-23] MEDS: SODIUM CHLORIDE FLUSH 0.9% 10 ML SYRINGE IVP SCH ×4 (00:09→23:55)
[2021-05-23] MEDS: HYDROmorphone 0.5 MG/0.5 ML SYRINGE IVP PRN (00:16)
[2021-05-23] MEDS: PIPERACILLIN/TAZOBACTAM 3.375 GM in SODIUM CHLORIDE 0.9% MINIBAG 100 ML IV SCH ×5 (00:20→23:55)
[2021-05-23] MEDS: ACETAMINOPHEN 1,000 MG/100 ML 100 ML IV SCH ×3 (03:49→15:38)
[2021-05-23] MEDS: PANTOPRAZOLE 40 MG VIAL IVP SCH (06:01)
[2021-05-23] MEDS: SODIUM CHLORIDE 0.9% 1,000 ML IV SCH (07:10)
[2021-05-23] MEDS: HYDROmorphone 1 MG/ML CARPUJECT IVP PRN ×5 (08:20→21:27)
--- NOTE | 2021-05-23 08:26 | PHARMACY PROGRESS NOTE ---
- Best Possible Medication History Admit Date and Time: 05/21/21 1503 Processed by: Nursing Medication History completed: Yes As the person ultimately responsible for medication therapy, providers are able to order a medication from an existing home medication list in [facility] via the "Reconcile Routine" prior to Confirmation of that medication by operations support coordinator. Such practice is discouraged except when the physician, in their clinical judgment, deems that a medical need exists for a medication without regard to previous use.
[2021-05-23 08:53] LABS: BASOPHILS % (AUTO) 0.3 %; EOSINOPHILS # (AUTO) 0.1 10^3/uL (0.0-0.7); EOSINOPHILS % (AUTO) 0.6 %; HCT - HEMATOCRIT 38.1 % (37.0-47.0); HGB - HEMOGLOBIN 12.9 g/dL (12.0-16.0); LYMPHOCYTES # (AUTO) 1.2 10^3/uL (1.5-3.5); LYMPHOCYTES % (AUTO) 10.9 %; MEAN CORPUSCULAR HEMOGLOBIN 29.3 pg (27.0-31.0); MEAN CORPUSCULAR HGB CONC 33.9 g/dL (32.0-36.0); MEAN CORPUSCULAR VOLUME 86.4 fL (81.0-99.0); MEAN PLATELET VOLUME 9.9 fL (7.9-10.8); MONOCYTES # (AUTO) 0.4 10^3/uL (0.0-1.0); MONOCYTES % (AUTO) 3.6 %; NEUTROPHILS # (AUTO) 9.3 10^3/uL (1.5-6.6); NEUTROPHILS % (AUTO) 84.4 %; PLT - PLATELET COUNT 245 10^3/uL (130-450); RED BLOOD COUNT 4.41 10^6/uL (4.20-5.40); RED CELL DISTRIBUTION WIDTH 12.6 % (12.0-15.0)
[2021-05-23 09:05] LABS: ALBUMIN 3.1 g/dL (3.2-5.5); ALBUMIN/GLOBULIN RATIO 0.9 (1.0-2.2); BILIRUBIN,TOTAL 0.9 mg/dL (0.2-1.0); CALCIUM 7.9 mg/dL (8.5-10.3); CREATININE 0.8 mg/dL (0.4-1.0); POTASSIUM 2.8 mmol/L (3.5-5.0); TOTAL PROTEIN 6.5 g/dL (6.7-8.2)
[2021-05-23] MEDS: KETOROLAC 15 MG/ML VIAL IVP PRN ×2 (11:41→19:01)
[2021-05-23] MEDS ORDERED: polyethylene glycoL 3350 17 GM PACKET PO PRN (13:44)
--- NOTE | 2021-05-23 13:49 | PROVIDER PROGRESS NOTE ---
Subjective - Prog Note Date Prog Note Date: 05/23/21 - Subjective Pt reports feeling: No change (appears well however complains of pain) Objective - Vital Signs/Intake & Output Reviewed Vital Signs: Yes Vital Signs: Vital Signs x48h Temp Pulse Resp BP Pulse Ox 05/23/21 11:39 36.7 C 70 17 118/69 97 05/23/21 07:33 36.7 C 66 16 131/69 H 97 05/23/21 07:03 36.4 C L 74 16 122/70 96 Intake & Output: Intake & Output 05/20/21 05/21/21 05/22/21 05/23/21 23:59 23:59 23:59 23:59 Intake Total 3250 3340.000 2645 Output Total 401 1025 1650 Balance 2849 2315.000 995 - Objective General Appearance: positive: No acute distress, Alert Eyes Bilateral: positive: PERRL, EOMI, No scleral icterus ENT: positive: No signs of dehydration Neck: positive: No JVD Respiratory: positive: No respiratory distress Abdomen: positive: No distention Neurologic/Psychiatric: positive: Oriented x3 - Lab Results Fish Bones: 05/23/21 08:47 05/23/21 08:47 Other Labs: Lab Results x24hrs 05/23/21 05/23/21 Range/Units 08:47 08:47 WBC 11.0 H (4.8-10.8) x10^3/uL RBC 4.41 (4.20-5.40) 10^6/uL Hgb 12.9 (12.0-16.0) g/dL Hct 38.1 (37.0-47.0) % MCV 86.4 (81.0-99.0) fL MCH 29.3 (27.0-31.0) pg MCHC 33.9 (32.0-36.0) g/dL RDW 12.6 (12.0-15.0) % Plt Count 245 (130-450) 10^3/uL MPV 9.9 (7.9-10.8) fL Neut # (Auto) 9.3 H (1.5-6.6) 10^3/uL Lymph # (Auto) 1.2 L (1.5-3.5) 10^3/uL [place] # (Auto) 0.4 (0.0-1.0) 10^3/uL Eos # (Auto) 0.1 (0.0-0.7) 10^3/uL Baso # (Auto) 0.0 (0.0-0.1) 10^3/uL Absolute Nucleated RBC 0.00 x10^3/uL Nucleated RBC % 0.0 /100WBC Sodium 135 (135-145) mmol/L Potassium 2.8 L (3.5-5.0) mmol/L Chloride 102 (101-111) mmol/L Carbon Dioxide 21 (21-32) mmol/L Anion Gap 12.0 (6-13) BUN 8 (6-20) mg/dL Creatinine 0.8 (0.4-1.0) mg/dL Estimated GFR (MDRD) 85 L (>89) Glucose 78 (70-100) mg/dL Calcium 7.9 L (8.5-10.3) mg/dL Total Bilirubin 0.9 (0.2-1.0) mg/dL AST 24 (10-42) IU/L ALT 35 (10-60) IU/L Alkaline Phosphatase 90 (42-121) IU/L Total Protein 6.5 L (6.7-8.2) g/dL Albumin 3.1 L (3.2-5.5) g/dL Globulin 3.4 (2.1-4.2) g/dL Albumin/Globulin Ratio 0.9 L (1.0-2.2) - Diagnostic Imaging Diagnostic Imaging Results: positive: Read independently Sepsis Event Note (H) - Sepsis Criteria Sepsis Criteria: WBC count greater than 10% bands, WBC count greater than 12,000 or less than 4000 Assessment/Plan - Problem List (1) Acute cholecystitis due to biliary calculus Impression: clinically doing well; however, still complaining of pain wbc down no fever benign non distended abdomen tolerating clears well 5 weeks present who is fluent in spanish. we discussed she is improving clinically and we would anticipate her pain to improve as well. safer to do surgery between 12 and 20 weeks. urgent surgery is not needed at this time plan replace k continue ivf and iv abxs
[2021-05-23] MEDS: POTASSIUM CHLOR 10 MEQ/100 ML 10 MEQ/100 ML BAG IV SCH ×4 (14:06→19:11)
[2021-05-23] MEDS: LORazepam 2 MG/ML VIAL IVP PRN ×2 (15:53→22:07)
[2021-05-23] MEDS: D5.45NS W/20 MEQ KCL 1,000 ML IV SCH (19:10)
[2021-05-23] MEDS: DOCUSATE SODIUM 100 MG CAPSULE PO SCH (21:26)
[2021-05-23] MEDS: oxyCODONE 5 MG TABLET PO PRN (22:07)
[2021-05-24] MEDS: KETOROLAC 15 MG/ML VIAL IVP PRN (06:07)
[2021-05-24] MEDS: PANTOPRAZOLE 40 MG VIAL IVP SCH (06:10)
[2021-05-24] MEDS: PIPERACILLIN/TAZOBACTAM 3.375 GM in SODIUM CHLORIDE 0.9% MINIBAG 100 ML IV SCH ×4 (06:14→23:42)
[2021-05-24] MEDS: D5.45NS W/20 MEQ KCL 1,000 ML IV SCH ×2 (07:00→09:05)
[2021-05-24 07:18] LABS: ALBUMIN 3.3 g/dL (3.2-5.5); ALBUMIN/GLOBULIN RATIO 0.9 (1.0-2.2); BILIRUBIN,TOTAL 0.5 mg/dL (0.2-1.0); CALCIUM 8.4 mg/dL (8.5-10.3); CREATININE 0.8 mg/dL (0.4-1.0); POTASSIUM 3.1 mmol/L (3.5-5.0); TOTAL PROTEIN 6.8 g/dL (6.7-8.2)
[2021-05-24 07:32] LABS: HCT - HEMATOCRIT 41.1 % (37.0-47.0); HGB - HEMOGLOBIN 13.9 g/dL (12.0-16.0); MEAN CORPUSCULAR HEMOGLOBIN 29.3 pg (27.0-31.0); MEAN CORPUSCULAR HGB CONC 33.8 g/dL (32.0-36.0); MEAN CORPUSCULAR VOLUME 86.7 fL (81.0-99.0); MEAN PLATELET VOLUME 10.1 fL (7.9-10.8); RED BLOOD COUNT 4.74 10^6/uL (4.20-5.40); RED CELL DISTRIBUTION WIDTH 12.6 % (12.0-15.0)
[2021-05-24] MEDS: oxyCODONE 5 MG TABLET PO PRN ×2 (08:17→23:42)
[2021-05-24] MEDS: ACETAMINOPHEN 500 MG TABLET PO PRN ×2 (08:17→12:08)
[2021-05-24] MEDS: DOCUSATE SODIUM 100 MG CAPSULE PO SCH ×2 (08:17→21:12)
[2021-05-24] MEDS: ONDANSETRON 4 MG/2 ML VIAL IVP PRN (08:17)
[2021-05-24] MEDS: SODIUM CHLORIDE FLUSH 0.9% 10 ML SYRINGE IVP SCH ×3 (08:18→23:43)
[2021-05-24] MEDS ORDERED: ONDANSETRON ODT 4 MG TABLET TL PRN (10:38)
[2021-05-24] MEDS ORDERED: DOXYLAMINE 25 MG TABLET PO PRN (10:41)
[2021-05-24] MEDS: PYRIDOXINE 100 MG TABLET PO SCH ×4 (12:02→21:12)
[2021-05-24] MEDS: PRENATAL VITAMIN TABLET PO SCH (12:02)
[2021-05-24] MEDS: POTASSIUM CHLOR 10 MEQ/100 ML 10 MEQ/100 ML BAG IV SCH ×4 (13:00→17:56)
--- NOTE | 2021-05-24 14:55 | PROVIDER PROGRESS NOTE ---
Subjective - Prog Note Date Prog Note Date: 05/24/21 - Subjective Pt reports feeling: Improved Subjective: pain improved and appetite returning Objective - Vital Signs/Intake & Output Reviewed Vital Signs: Yes Vital Signs: Vital Signs x48h Temp Pulse Resp BP Pulse Ox 05/24/21 12:11 36.7 C 82 18 146/86 H 99 05/24/21 07:52 36.7 C 66 17 112/67 96 Intake & Output: Intake & Output 05/21/21 05/22/21 05/23/21 05/25/21 23:59 23:59 23:59 00:59 Intake Total 3250 3340.000 4755.000 1868.333 Output Total 401 1025 1750 1700 Balance 2849 2315.000 3005.000 168.333 - Objective General Appearance: positive: No acute distress, Alert Eyes Bilateral: positive: PERRL, EOMI, No scleral icterus ENT: positive: No signs of dehydration Neck: positive: No JVD Respiratory: positive: No respiratory distress Abdomen: positive: Non-tender, No distention Neurologic/Psychiatric: positive: Oriented x3 - Lab Results Fish Bones: 05/24/21 07:01 05/24/21 07:01 Other Labs: Lab Results x24hrs 05/24/21 05/24/21 Range/Units 07:01 07:01 WBC 9.0 (4.8-10.8) x10^3/uL RBC 4.74 (4.20-5.40) 10^6/uL Hgb 13.9 (12.0-16.0) g/dL Hct 41.1 (37.0-47.0) % MCV 86.7 (81.0-99.0) fL MCH 29.3 (27.0-31.0) pg MCHC 33.8 (32.0-36.0) g/dL RDW 12.6 (12.0-15.0) % Plt Count 294 (130-450) 10^3/uL MPV 10.1 (7.9-10.8) fL Sodium 135 (135-145) mmol/L Potassium 3.1 L (3.5-5.0) mmol/L Chloride 101 (101-111) mmol/L Carbon Dioxide 23 (21-32) mmol/L Anion Gap 11.0 (6-13) BUN 6 (6-20) mg/dL Creatinine 0.8 (0.4-1.0) mg/dL Estimated GFR (MDRD) 85 L (>89) Glucose 111 H (70-100) mg/dL Calcium 8.4 L (8.5-10.3) mg/dL Total Bilirubin 0.5 (0.2-1.0) mg/dL AST 18 (10-42) IU/L ALT 30 (10-60) IU/L Alkaline Phosphatase 102 (42-121) IU/L Total Protein 6.8 (6.7-8.2) g/dL Albumin 3.3 (3.2-5.5) g/dL Globulin 3.5 (2.1-4.2) g/dL Albumin/Globulin Ratio 0.9 L (1.0-2.2) Sepsis Event Note (H) - Sepsis Criteria Sepsis Criteria: WBC count greater than 10% bands, WBC count greater than 12,000 or less than 4000 Assessment/Plan - Problem List (1) Acute cholecystitis due to biliary calculus Impression: improving. plan low fat diet and if taking adequate po and pain controlled with oral meds plan home, likely tomorrow
[2021-05-24] MEDS: HYDROmorphone 1 MG/ML CARPUJECT IVP PRN ×2 (18:50→21:52)
[2021-05-25] MEDS: HYDROmorphone 1 MG/ML CARPUJECT IVP PRN (03:30)
[2021-05-25] MEDS: D5.45NS W/20 MEQ KCL 1,000 ML IV SCH ×2 (03:32→09:03)
[2021-05-25] MEDS: PIPERACILLIN/TAZOBACTAM 3.375 GM in SODIUM CHLORIDE 0.9% MINIBAG 100 ML IV SCH (05:49)
[2021-05-25] MEDS: PANTOPRAZOLE 40 MG VIAL IVP SCH (05:49)
[2021-05-25] MEDS: oxyCODONE 5 MG TABLET PO PRN ×2 (05:49→10:54)
[2021-05-25] MEDS: DOCUSATE SODIUM 100 MG CAPSULE PO SCH (08:44)
[2021-05-25] MEDS: PYRIDOXINE 100 MG TABLET PO SCH (08:45)
[2021-05-25] MEDS: PRENATAL VITAMIN TABLET PO SCH (08:45)
[2021-05-25] MEDS: SODIUM CHLORIDE FLUSH 0.9% 10 ML SYRINGE IVP SCH (09:03)
[2021-05-25] MEDS: ACETAMINOPHEN 500 MG TABLET PO PRN (10:54)
[2021-05-25 10:56] VITALS: BP 116/75
--- NOTE | 2021-05-25 11:02 | Discharge Plan ---
Discharge Plan Problem Reviewed?: Yes Disposition: Home, Self Care Condition: Good Prescriptions: Amox/Clav 875/125 [Augmentin 875/125 Tab] 1 tablet PO Q12H 5 Days #10 tablet oxyCODONE/ACET 5/325 [Percocet 5 mg/325 mg] 1 each PO Q4-6H PRN #30 tablet PRN Reason: Pain Ondansetron Odt [Zofran Odt] 4 mg PO Q6H PRN #15 tablet PRN Reason: Nausea / Vomiting Diet: Regular (low fat) Activity Restrictions: No Restrictions Shower Restrictions: No Driving Restrictions: No (no driving while taking pain pills) Plan of Treatment: call the surgery office and make a follow up appointment [phone] Assessment: cholecystitis/ gallbladder inflammation, improving No Smoking: If you smoke, Please STOP! Call for help. Follow-up with: Beau Pena MD [Provider Admit Priv/Credential] -
--- NOTE | 2021-05-25 11:06 | DISCHARGE SUMMARY ---
"Discharge Summary Admit Date: 05/21/21 Discharge Date: 05/25/21 Discharging Provider: rich cortés md Code Status: Attempt Resuscitation Condition at Discharge: Good Discharge Disposition: 01 Home, Self Care Discharge Facility Name: [facility] - DIAGNOSES Admission Diagnoses: cholecystitis and 5 weeks Discharge Diagnoses with Status of Each Condition: home in good condition - HPI History of Present Illness: present with right upper quadrant pain, nausea, inflamed gallbladder on ultrasound. 5 weeks pregant. treated medically and improved - CONSULTS | PROCEDURES Procedures: ivf, iv antibiotics, pain and nausea medication - HOSPITAL COURSE Hospital Course: daily improvement. home 05/25/2021 tolerating diet, normal labs and vital signs. benign abdominal exam. - ALLERGIES Allergies/Adverse Reactions: Allergies Allergy/AdvReac Type Severity Reaction Status Date / Time No Known Drug Allergies Allergy Verified 05/21/21 08:45 - MEDICATIONS Home Medications: Ambulatory Orders Medication Instructions Recorded Confirmed Ondansetron Odt [Zofran] 4 mg TL Q6H PRN #10 tablet 05/13/21 05/21/21 Oxycodone HCl/Acetaminophen 1 - 2 each PO Q6H PRN #30 tablet 05/17/21 05/21/21 [Percocet 5-325 mg Tablet] Amox/Clav 875/125 [Augmentin 1 tablet PO Q12H 5 Days #10 tablet 05/25/21 875/125 Tab] Ondansetron Odt [Zofran Odt] 4 mg PO Q6H PRN #15 tablet 05/25/21 oxyCODONE/ACET 5/325 [Percocet 5 1 each PO Q4-6H PRN #30 tablet 05/25/21 mg/325 mg] - PHYSICAL EXAM AT DISCHARGE General Appearance: positive: No acute distress, Alert Eyes Bilateral: positive: PERRL, EOMI, No scleral icterus ENT: positive: No signs of dehydration Neck: positive: No JVD Respiratory: positive: No respiratory distress Abdomen: positive: Non-tender, No distention Neurologic/Psychiatric: positive: Oriented x3 - LABS Result Diagrams: 05/24/21 07:01 05/24/21 07:01 - SEPSIS Sepsis Criteria: WBC count greater than 10% bands, WBC count greater than 12,000 or less than 4000 - FOLLOW UP Follow Up: rich cortés md call to make an appointment [phone]"
== END 2021-05-25 11:45 | disposition home or self-care (01) | DRG 832 ==
LOC: ED 08:35 → MS2 15:03 → OBSVTOIN 05-24 14:49
PROVIDERS: ADMIT Surgery; ATTEND Surgery
DX: O99.611 Diseases of the digestive system complicating pregnancy, first trimester (principal); K80.00 Calculus of gallbladder with acute cholecystitis without obstruction; Z3A.01 Less than 8 weeks gestation of pregnancy; Z20.822 Contact with and (suspected) exposure to COVID-19
CPT/HCPCS: 0202U; 36415; 76705; 80053; 83690; 84702; 85025; 85027; A9270; G0378; J0131; J1170; J2060; 96365; 96366; 96367; 96368; 96375; 96376; 99285